=== PATIENT | male | born 1960 | race Caucasian/White ===

== ENCOUNTER → 2018-10-24 | Day surgery (SDC) | payer OTHER ==
[~2018-10-24] MED LIST: ACET325T9 PO; ATOR20TA58 PO; BUSP10TA PO; FLUO20CA16 PO; HYDROmorphone 2 MG/ML VIAL IV PRN; IBUP-1060 PO; IV RINGERS,LACTATED 1000ML 1,000 ML IV SCH; LIDOCAINE 1% PF 2 ML VIAL. ID PRN; LIDOCAINE 2% PF 5 ML VIAL. ONE; MORPHINE SULFATE 2 MG/ML VIAL. IV PRN; ONDANSETRON PF 4 MG/2 ML VIAL. IV PRN; PROCHLORPERAZINE 10 MG/2 ML VIAL. IV PRN; PROPOFOL 20 ML IV ONE; PROPOFOL 40 ML IV ONE; fentaNYL PF VIAL 100 MCG/2 ML VIAL IV PRN
[2018-10-24 07:54] VITALS: BP 147/76
== END ==
LOC: ENDOS 05:33
PROVIDERS: ATTEND Internal Medicine Gastroenterology
DX: K57.30 Diverticulosis of large intestine without perforation or abscess without bleeding (principal); K64.0 First degree hemorrhoids; F41.9 Anxiety disorder, unspecified; J45.909 Unspecified asthma, uncomplicated; F32.9 Major depressive disorder, single episode, unspecified; K21.9 Gastro-esophageal reflux disease without esophagitis; F15.90 Other stimulant use, unspecified, uncomplicated; Z86.010 Personal history of colon polyps; Z88.6 Allergy status to analgesic agent; Z88.3 Allergy status to other anti-infective agents; Z88.5 Allergy status to narcotic agent; Z88.8 Allergy status to other drugs, medicaments and biological substances; Z72.89 Other problems related to lifestyle; Z72.0 Tobacco use; Z98.890 Other specified postprocedural states
CPT/HCPCS: 45378; J2001; J2704

== ENCOUNTER → 2018-10-27 | Outpatient (CLI) | payer OTHER ==
[2018-10-24 07:54] VITALS: BP 147/76
[~2018-10-27] MED LIST changes: -HYDROmorphone 2 MG/ML VIAL IV PRN; -IV RINGERS,LACTATED 1000ML 1,000 ML IV SCH; -LIDOCAINE 1% PF 2 ML VIAL. ID PRN; -LIDOCAINE 2% PF 5 ML VIAL. ONE; -MORPHINE SULFATE 2 MG/ML VIAL. IV PRN; -ONDANSETRON PF 4 MG/2 ML VIAL. IV PRN; -PROCHLORPERAZINE 10 MG/2 ML VIAL. IV PRN; -PROPOFOL 20 ML IV ONE; -PROPOFOL 40 ML IV ONE; -fentaNYL PF VIAL 100 MCG/2 ML VIAL IV PRN
--- NOTE | 2018-10-27 13:56 | EKG ---
[facility] [address] [place] [address] Test Date: 2018-10-27 Test Time: 13:41:36 Pat Name: TIKA SANTAMARIA Department: Room: Gender: M [employer]ician: : [id number] Requested By: ROCAEL YOUNG Order Number: [id number] Reading MD: Wilfredo Lou MD Measurements Intervals [place] Rate: 86 P: 28 MT: 158 QRS: 33 QRSD: 88 T: 29 QT: 354 QTc: 427 Interpretive Statements SINUS RHYTHM NON-SPECIFIC ST/T CHANGES Electronically Signed On 11-20-2018 13:15:29 CDT by Wilfredo Lou MD
== END | disposition home or self-care (01) ==
LOC: EKG 12:45
PROVIDERS: ATTEND Registered Nurse
DX: Z01.818 Encounter for other preprocedural examination (principal)
CPT/HCPCS: 93005

== ENCOUNTER → 2018-12-08 | Outpatient (CLI) | payer OTHER ==
[2018-10-24 07:54] VITALS: BP 147/76
[~2018-12-08] MED LIST changes: +GADOTERATE 5 MMOL/10ML VIAL. IVP ONE
--- NOTE | 2018-12-08 14:55 | RAD ---
MRI Lumbar Spine without and with contrast History: Low back pain, bilateral leg radiculopathy Technique: Multiplanar, multi sequential pre and postcontrast MR imaging was performed of the lumbar spine. Comparison: None Findings: Lumbar vertebral body stature is maintained. There is negligible posterior subluxation L5 relative to S1 and negligible anterior spondylolisthesis at L4-5. There is moderate to severe degenerative disc disease L5-S1, degenerative endplate change greater on the right. There is mild disc desiccation of more superior levels. There are posterior annular tears L1-2, L2-3, L4-5. There is edema of the L5 pedicles greater on the right with some extent to the facet articular processes more likely to be reactive/degenerative in etiology. There is no nodular enhancement of the conus or cauda equina, no enhancement in the intervertebral disc spaces. Conus terminates at the superior aspect of L1. L1-L2: Neural foramina and spinal canal are adequate. L2-L3: Neural foramina and spinal canal are adequate. There is mild facet degenerative change and buckling of the ligamentum flavum. L3-L4: There is mild facet degenerative change and buckling of the ligamentum flavum. There is minimal inferior narrowing of the neural foramina bilaterally greater on the left from posteriorly by facet. Spinal canal is overall adequate. L4-L5: There is moderate facet degenerative change and mild buckling of the ligamentum flavum. There is mild narrowing of the right lateral recess from posteriorly. Neural foramina are overall adequate. L5-S1: There is negligible disc osteophyte complex. Spinal canal is adequate. Right neural foramen is adequate. Disc osteophyte complex results in mild narrowing of the inferior left neural foramen greater distally with contact of the exiting L5 nerve root extending to proximal extraforaminal region. Impression: 1. There is no significant lumbar spinal stenosis. 2. There is mild neural foramina compromise as stated. Disc osteophyte complex contacts the exiting left L5 nerve root at L5-S1 extending to proximal extraforaminal region. 3. There is moderate to severe degenerative disc disease at L5-S1. 4. There is some edema of the L5 pedicles greater on the right more likely to be reactive/degenerative in etiology. There is facet degenerative change greater inferiorly of the lumbar spine. Electronically signed by: David Bennett MD (12/08/2018 2:52 PM) [id number]
== END | disposition home or self-care (01) ==
LOC: MRI 14:50
PROVIDERS: ATTEND Anesthesiology
DX: M43.16 Spondylolisthesis, lumbar region (principal); M51.37 Other intervertebral disc degeneration, lumbosacral region; M48.07 Spinal stenosis, lumbosacral region; M47.816 Spondylosis without myelopathy or radiculopathy, lumbar region; M25.78 Osteophyte, vertebrae
CPT/HCPCS: 72158; A9575